=== PATIENT | female | born 1940 | race Caucasian/White ===

== ENCOUNTER 2022-02-03 10:36 | Emergency (ER) | payer MEDICARE, BC ==
[2022-02-03] MEDS ORDERED: Albuterol/Ipratropium 3.0-0.5 MG/3 ML Neb Soln NEB ONE (11:03)
[2022-02-03] MEDS ORDERED: Albuterol/Ipratropium 3.0-0.5 MG/3 ML Neb Soln ONE (11:05)
[2022-02-03 11:45] LABS: CORONAVIRUS COVID-19 NAA POSITIVE (NEGATIVE); RESPIRATORY SYNCYTIAL VIR NAA NEGATIVE (NEGATIVE)
[2022-02-03 12:01] LABS: ANION GAP 11.2 meq/L (7-15)
[2022-02-03] MEDS ORDERED: Sodium Chloride 1 GM Tab PO ONE (12:04)
== END 2022-02-03 12:30 | disposition home or self-care (01) ==
LOC: MERGE 10:36 → LL.ED 10:36
DX: U07.1 COVID-19 (principal); E87.1 Hypo-osmolality and hyponatremia; E78.00 Pure hypercholesterolemia, unspecified; I10 Essential (primary) hypertension; E03.9 Hypothyroidism, unspecified; Z88.0 Allergy status to penicillin; Z88.1 Allergy status to other antibiotic agents; Z88.5 Allergy status to narcotic agent; Z79.82 Long term (current) use of aspirin; Z79.899 Other long term (current) drug therapy
CPT/HCPCS: 0241U; 36415; 71046; 80053; 83735; 85025; 94640; 99284; J7620-GY